=== PATIENT | female | born 1990 | race Caucasian/White ===

== ENCOUNTER 2017-05-22 12:28 | Outpatient (CLI) | payer MEDICAID ==
[~2017-05-22] VITALS: Ht 147.3 cm; Wt 69.0 kg
[2017-05-22] MEDS ORDERED: LACTATED RINGER'S 1,000 ML IV SCH (13:28)
[2017-05-22] MEDS ORDERED: PNV91TAB6 PO (14:07)
[2017-05-22 14:08] VITALS: Ht 147.3 cm; Wt 69.0 kg
--- NOTE | 2017-05-22 14:12 | RADRPT ---
PROCEDURE: US biophysical profile. Cervical length ultrasound. CLINICAL INDICATION: Decreased motion. TECHNIQUE: Multiple sonographic images of the uterus were obtained. Transvaginal sonogra phy of the cervix was also performed. The images were reviewed on a PACS workstation. COMPARISON: No prior studies are available for comparison. FINDINGS: There is a single live intrauterine gestation. heart rate is 134 beats per minute. The position is cephalic. The placenta is anterior grade II with no abruption or previa. The RACHEL is 12.4 cm. (Normal = 5-20 cm.) Cervical length is 3.1 cm. Breathing Movement: 2 Gross Body Movement: 2 Tone: 2 Qualitative Amniotic Fluid Volume: 2 TOTAL: 8 IMPRESSION: 1. The biophysical score is 8/8. 2. Cervical length is 3.1 cm. RPTAT: QQ .Himansuh Pandya MD, Date Time Electronically viewed and signed by .Himanshu Pandya MD, MD on 05/22/2017 14:12 .R/
--- NOTE | 2017-05-22 14:18 | TRIAGE ---
OB Triage Datetime Report Generated by CPN: 05/22/2017 14:18 Datetime: 05/22/2017 14:17 Assessment Type: Triage Maternal Assessment Level of Consciousness: Fully Conscious DTR's/Clonus: DTRs 2+; No Clonus Headache: Denies Blurred Vision: No Respiratory Effort: Unlabored; Regular Rhythm; Equal Expansion Breath Sounds, Left: Clear and Equal Breath Sounds, Right: Clear and Equal Nausea/Vomiting: Denies RUQ Epigastric Pain: Denies Lower Extremities Edema: None Degree: None Upper Extremities Edema: None Degree: None Facial Edema: None Fall Risk Assessment History of Falling: (0) No Secondary Diagnosis: (0) No Ambulatory Aid: (0) Bedrest/Nurse Assist IV Therapy: (0) No Gait: (0) Normal/Bedrest/Immobile Mental Status: (0) Oriented to Own Ability Fall Score: 0 Fall Risk Score Definition: No Risk: No action required Datetime: 05/22/2017 13:24 Vaginal Exam Dilatation (cms): 0.0 Exam By: Dr Bishop Vaginal Bleeding: None Cervix, Consistency: Moderate Cervix, Position: Anterior Presentation 'A': Cephalic Datetime: 05/22/2017 13:02 Time of Arrival: 05/22/2017 12:22 EGA: 34.6 Arrived By: Ambulatory Arrived From: Office Chief Complaint: PT HERE C/O DIZZINESS AND WEAKNESS AFTER BEING TOLD THAT HER DAD THIS AM. Movement: Present Contractions: Denies/Absent Rupture of Membranes: Denies Vaginal Bleeding: None Vaginal Discharge: Denies Recent Sexual Intercouse: Denies Abdominal Trauma: Not Applicable Patient Complaints: Dizziness Time Provider Notified: 05/22/2017 13:00 Provider Notified: ИРИНА Initial Plan: EFM/SVE/CVL/BPP/IV HYDRATION
[2017-05-22 14:22] VITALS: BP 118/64; PULSE 78; RESP 18
--- NOTE | 2017-06-05 12:34 | QN ---
Documentation Comment 34 weeks 6 days, had episodes of lightheadedness and mild dizziness after she heard the bad news regarding her father , vital sign, biophysical profile. All within normal patient discharged home with reassurance recommended follow-up at the clinic BLAINE LACKEY MD Jun 05, 2017 12:34
== END 2017-05-22 15:17 | disposition left against medical advice (07) ==
LOC: OBT 12:28 → L-D 12:30 → OBG 14:30 → UNDOADMIN 14:30 → OBT 14:59
PROVIDERS: ATTEND Obstetrics & Gynecology
DX: O26.893 Other specified pregnancy related conditions, third trimester (principal); R51 Headache; R42 Dizziness and giddiness; Z3A.34 34 weeks gestation of pregnancy
CPT/HCPCS: 36415; 76817; 76818; J7120; Z7500; G0463

== ENCOUNTER 2017-06-05 11:12 | Outpatient (CLI) | payer MEDICAID ==
[~2017-06-05] VITALS: Ht 152.4 cm; Wt 70.4 kg
[~2017-06-05 11:12] MED LIST: PNV91TAB6 PO
[2017-06-05 11:45] VITALS: Ht 152.4 cm; Wt 70.4 kg
--- NOTE | 2017-06-05 13:12 | RADRPT ---
PROCEDURE: US OB biophysical profile. Ultrasound cervix CLINICAL INDICATION: decreased movements, status post fall TECHNIQUE: Multiple sonographic images of the pelvis were obtained. In addition, transvaginal julieta ges of the cervix were obtained. The images were reviewed on a PACS workstation. COMPARISON: US PELVIS 05/22/2017 FINDINGS: The cervix measures 2.4 cm in length. There is a single viable intrauterine gestation. Cardiac activity is present with 125 beats per min sheldon. There is a vertex presentation. The placenta is anterior. There is no evidence of placental abruption. There is a normal amount of amniotic fluid with an RACHEL = 8.5 cm. Biophysical profile: movement 2/2 tone 2/2. breathing 2/2 RACHEL 2/2 Total 03/04 RPTAT: AA . IMPRESSION: Normal biophysical profile. Cervix measures 2.4 cm in length. .Christian Bacon MD, MD Date Time Electronically viewed and signed by .Christian Bacon MD, on 06/05/2017 13:12 .S/
--- NOTE | 2017-06-05 14:34 | TRIAGE ---
OB Triage Datetime Report Generated by CPN: 06/05/2017 14:34 Datetime: 06/05/2017 13:53 Monitor Mode: External Resting Tone [place]: Relaxed Heart Rate FHR Baseline Rate: 130 Monitor Mode: External US FHR Baseline Changes: No Baseline Change Variability: Moderate 6-25 bpm Accelerations: 15X15 Decelerations: None Category: Category I Datetime: 06/05/2017 12:45 Labor Evaluation Frequency: 10 Monitor Mode: External Duration (sec)2399: 50 Quality: Mild Pattern: Normal: <= 5 Contractions in 10 Minutes Resting Tone [place]: Relaxed Heart Rate FHR Baseline Rate: 135 Monitor Mode: External US FHR Baseline Changes: No Baseline Change Variability: Moderate 6-25 bpm Accelerations: 15X15 Decelerations: None Category: Category I Pain Assessment Pain Scale: 5 Pain Presence: Intermittent Pain Type: Ache Pain Location: Perineum Pain Goal: 0 Pain Relief Measures: Comfort Measures Datetime: 06/05/2017 11:58 Vaginal Exam Dilatation (cms): 0.5 Effacement (%): 50 Station: -2 Exam By: MD Foroohar Membrane Status: Intact Datetime: 06/05/2017 11:53 Labor Evaluation Frequency: 10 Monitor Mode: External Duration (sec)2399: 60 Quality: Mild Pattern: Normal: <= 5 Contractions in 10 Minutes Resting Tone [place]: Relaxed Heart Rate FHR Baseline Rate: 125 Monitor Mode: External US FHR Baseline Changes: No Baseline Change Variability: Moderate 6-25 bpm Accelerations: 15X15 Decelerations: None Category: Category I Pain Assessment Pain Scale: 6 Pain Presence: Intermittent Pain Type: Ache Pain Location: Abdomen; Perineum Pain Goal: 0 Pain Relief Measures: Comfort Measures Datetime: 06/05/2017 11:43 Time of Arrival: 06/05/2017 11:07 EGA: 36.5 Arrived By: Wheelchair Arrived From: Other Unit in Hospital Chief Complaint: Fall Movement: Present Contractions: Denies/Absent Rupture of Membranes: Denies Vaginal Discharge: Denies Recent Sexual Intercouse: Denies Abdominal Trauma: Fall Patient Complaints: Other Time Provider Notified: 06/05/2017 11:50 Provider Notified: Foroohar Initial Plan: NST, BPP/RACHEL, Cervical Length, KB Datetime: 06/05/2017 11:30 Assessment Type: Triage Maternal Assessment Level of Consciousness: Fully Conscious DTR's/Clonus: DTRs 2+; No Clonus Headache: Denies Blurred Vision: No Respiratory Effort: Unlabored; Regular Rhythm; Equal Expansion Breath Sounds, Left: Clear and Equal Breath Sounds, Right: Clear and Equal Nausea/Vomiting: Denies RUQ Epigastric Pain: Denies Lower Extremities Edema: Bilateral Lower Extremities Degree: Trace Upper Extremities Edema: None Degree: None Facial Edema: None Fall Risk Assessment History of Falling: (0) No Secondary Diagnosis: (0) No Ambulatory Aid: (0) Bedrest/Nurse Assist IV Therapy: (0) No Gait: (0) Normal/Bedrest/Immobile Mental Status: (0) Oriented to Own Ability Fall Score: 0 Fall Risk Score Definition: No Risk: No action required Datetime: 06/05/2017 11:20 Stage of : OB Triage Datetime: 05/22/2017 14:49 EGA: 34.6 Datetime: 05/22/2017 14:30 Stage of : OB Triage Maternal Assessment Level of Consciousness: Fully Conscious Labor Evaluation Frequency: 1UC/HR Monitor Mode: External Duration (sec)2399: 100 Quality: Moderate Resting Tone [place]: Relaxed Heart Rate FHR Baseline Rate: 135 Monitor Mode: External US Variability: Moderate 6-25 bpm Accelerations: 15X15 Decelerations: None Pain Assessment Pain Scale: 0 Pain Goal: 3 Membrane Status: Intact Vaginal Bleeding: None Datetime: 05/22/2017 14:17 Fall Score: 0 Fall Risk Score Definition: No Risk: No action required Datetime: 05/22/2017 13:30 Stage of : OB Triage Maternal Assessment Level of Consciousness: Fully Conscious Labor Evaluation Frequency: 1UC/HR Monitor Mode: External Duration (sec)2399: 100 Quality: Moderate Resting Tone [place]: Relaxed Heart Rate FHR Baseline Rate: 135 Monitor Mode: External US Variability: Moderate 6-25 bpm Accelerations: 15X15 Decelerations: None Category: Category I Pain Assessment Pain Scale: 0 Pain Goal: 3 Membrane Status: Intact Vaginal Bleeding: None Datetime: 05/22/2017 13:02 EGA: 34.6 Datetime: 05/22/2017 12:33 Monitor Mode: External Monitor Mode: External US
--- NOTE | 2017-06-05 15:51 | CONS ---
Date/Time of Note Date/Time of Note DATE: 06/05/17 TIME: 15:48 Consultation Date/Type/Reason Admit Date/Time June 05, 2017 OB triage consult This patient is a 27 years old 1 with estimated date of confinement of June 28, 2017 which makes her 36 weeks and 5 days. . She came to triage area due to fall when she was at home. On reviewing her record her blood type is O+ hepatitis B surface antigen and HIV RPR GBS chlamydia and gonorrhea were all negative. She is immune to rubella currently she is taking her vitamins as well as folic acid. Her general vital signs appear to be within normal limit ;with blood pressure 119/73 pulse rate 81,, respiration 18, and temperature 98.. On examination of abdomen contraction were very infrequent. heart tone was normal, with good variability occasional acceleration no decelerations. On pelvic examination the cervix was less than 1 fingertip about 50% effaced -2 station with intact membranes. Reason for Consultation Laboratory Tests Test 06/05/17 12:10 Kleihauer-Betke Stain 0.0000F/ARatio Constitutional: diaphoresis, other (No bruising or any other evidence of trauma found in any of wearing her body.), No chills, No disoriented, No febrile, No improved, No no complaints, No poor po, No requiring IVF, No requiring O2 Eyes: No discharge, No no complaints, No other, No pain, No redness, No visual change ENT: No bleeding, No congestion, No discharge, No dysphagia, No no complaints, No other, No pain, No sore throat Respiratory: sputum, No cough, No no complaints, No other, No pain, No pleuritic pain, No shortness of breath, No wheezing Cardiovascular: No chest pain, No edema, No lightheadedness, No no complaints, No orthopenea, No other, No palpitations, No paroxysmal nocturnal dyspnea Gastrointestinal: No blood, No constipation, No decreased appetite, No diarrhea , No flatus, No nausea, No no complaints, No other, No pain, No passing stool, No vomiting Genitourinary: other (As I mentioned on pelvic examination her cervix was a 1 fingertip 50% and -2), No bleeding, No discharge, No dysuria, No flank pain, No hematuria, No no complaints Musculoskeletal: No back pain, No bone/joint pain, No neck pain, No no complaints, No other, No restricted range of motion, No swelling Skin: No bruising, No erythema, No laceration, No no complaints, No other, No pruritis, No rash, No skin lesions Neurologic: No confusion, No dizziness, No focal-weakness, No headache, No no complaints, No other, No seizure, No syncope Endocrine: No dry skin, No no complaints, No other, No polydypsia, No polyuria , No temp intolerance Additional Comments Kleihauer-Betke test was performed which was negative on ultrasound study report was a single viable intrauterine gestation with cardiac activity of 125 bpm in vertex presentation the cervix measured 2.4 cm in length placenta was anterior, no evidence of abruption, her amniotic fluid index was 8.5 cm and the biophysical profile was reported 03/04. Disposition: With these normal finding with no evidence of any trauma patient was reassured and was discharged home to be followed in her clinic also advised to drink plenty of fluid and she will have another ultrasound study soon to check her amniotic fluid level. I should mention that this patient is already on a scheduled for section due to apparently past ruptured appendix. Social History Smoking Status: Never smoker Exam/Review of Systems Results Results 24 hrs Laboratory Tests Test 06/05/17 12:10 Kleihauer-Betke Stain 0.0000 SUSAN GIFFORD MD Jun 05, 2017 15:51
== END 2017-06-05 14:30 | disposition home or self-care (01) ==
LOC: OBT 11:12 → L-D 11:12 → OBT 14:30
PROVIDERS: ATTEND Obstetrics & Gynecology
DX: O9A.213 Injury, poisoning and certain other consequences of external causes complicating pregnancy, third trimester (principal); O36.8130 Decreased fetal movements, third trimester, not applicable or unspecified; Z3A.36 36 weeks gestation of pregnancy; W19.XXXA Unspecified fall, initial encounter; Y92.009 Unspecified place in unspecified non-institutional (private) residence as the place of occurrence of the external cause
CPT/HCPCS: 36415; 76817; 76818; 85460; Z7500; G0463

== ENCOUNTER 2017-06-13 19:49 | Outpatient (CLI) | payer MEDICAID ==
[~2017-06-13] VITALS: Ht 153.7 cm; Wt 70.9 kg
[2017-06-13 20:12] VITALS: BP 117/77; PULSE 83; RESP 18
--- NOTE | 2017-06-13 20:24 | PN ---
Triage Information Date/Time Reason for visit: DFM Weeks of Gestation 37w 6d /Para Objective Vital Signs Date Time Temp Pulse Resp B/P Pulse Ox O2 Delivery O2 Flow Rate FiO2 06/13/17 20:12 98.5 83 18 117/77 Room Air Heart Rate Comments reactive Contractions: None Results/Medications Imaging Results BPP ordered Assessment/Plan 27 y/o at 37w 6d with janice GUO -f/u BPP results -tylenol, po hydration JANA ANNA Jun 13, 2017 20:24
[2017-06-13] MEDS ORDERED: ACETAMINOPHEN 500 MG TAB PO STA (20:25)
[2017-06-13 20:39] LABS: ADD UMIC YES; UR ASCORBIC ACID NEGATIVE (NEGATIVE); UR BACTERIA FEW /HPF (NONE SEEN); UR BILIRUBIN (Dip) NEGATIVE (NEGATIVE); UR BLOOD (Dip) NEGATIVE (NEGATIVE); UR CLARITY CLEAR (CLEAR); UR COLOR YELLOW (YELLOW); UR GLUCOSE (Dip) NEGATIVE (NEGATIVE); UR KETONES (Dip) NEGATIVE (NEGATIVE); UR LEUKOCYTE ESTERASE (Dip) TRACE Leu/ul (NEGATIVE); UR NITRITE (Dip) NEGATIVE (NEGATIVE); UR RBC 1 /HPF (0-5); UR SPECIFIC GRAVITY (Dip) 1.005 (1.003-1.030); UR SQUAMOUS EPITHELIAL CELL FEW /HPF (FEW); UR TOTAL PROTEIN (Dip) NEGATIVE (NEGATIVE); UR UROBILINOGEN (Dip) NEGATIVE (NEGATIVE)
--- NOTE | 2017-06-13 21:04 | RADRPT ---
PROCEDURE: US biophysical profile. CLINICAL INDICATION: Contractions. TECHNIQUE: Multiple sonographic images of the uterus were obtained. The images were revi ewed on a PACS workstation. COMPARISON: No prior studies are available for comparison. FINDINGS: There is a single live intrauterine gestation. heart rate is 150 beats per minute. The position is cephalic. The placenta is anterior grade II with no abruption or previa. The RACHEL is 10.6 cm. (Normal = 5-20 cm.) Breathing Movement: 2 Gross Body Movement: 2 Tone: 2 Qualitative Amniotic Fluid Volume: 2 TOTAL: 8 IMPRESSION: 1. The biophysical score is 8/8. RPTAT: QQ .Himanshu Pandya MD, MD Date Time Electronically viewed and signed by .Himanshu Pandya MD, on 06/13/2017 21:04 .R/
--- NOTE | 2017-06-13 22:25 | TRIAGE ---
OB Triage Datetime Report Generated by CPN: 06/13/2017 22:25 Datetime: 06/13/2017 20:55 Stage of : OB Triage Monitor Mode: External Quality: Mild Pattern: Normal: <= 5 Contractions in 10 Minutes Resting Tone [place]: Relaxed Monitor Mode: External US Datetime: 06/13/2017 20:15 Stage of : OB Triage Monitor Mode: External Quality: Mild Pattern: Normal: <= 5 Contractions in 10 Minutes Resting Tone [place]: Relaxed Heart Rate FHR Baseline Rate: 140 Monitor Mode: External US FHR Baseline Changes: No Baseline Change Variability: Moderate 6-25 bpm Accelerations: 15X15 Decelerations: None Category: Category I Datetime: 06/13/2017 19:58 Stage of : OB Triage Maternal Assessment Level of Consciousness: Fully Conscious Headache: Generalized Blurred Vision: No Respiratory Effort: Unlabored Nausea/Vomiting: Present RUQ Epigastric Pain: Denies Facial Edema: None Labor Evaluation Frequency: placed Monitor Mode: External Resting Tone [place]: Relaxed Monitor Mode: External US Comments: FHT 140 Pain Assessment Pain Scale: 8 Pain Presence: Constant Pain Type: Stabbing; Pressure; Ache Pain Location: Head Datetime: 06/13/2017 19:54 Time of Arrival: 06/13/2017 19:44 EGA: 37.6 Arrived By: Wheelchair Arrived From: Home Chief Complaint: c/o severe GUO since last night and DFM Movement: Decreased Contractions: Denies/Absent Rupture of Membranes: Denies Vaginal Bleeding: None Vaginal Discharge: Denies Recent Sexual Intercouse: Denies Abdominal Trauma: Not Applicable Patient Complaints: Headache Time Provider Notified: 06/13/2017 20:15 Provider Notified: Dr Arceo Initial Plan: EFM, PO hydration, BPP, Tylenol 1000mg po Datetime: 06/05/2017 11:43 EGA: 36.5 Datetime: 06/05/2017 11:30 Fall Risk Assessment Fall Score: 0 Fall Risk Score Definition: No Risk: No action required Datetime: 05/22/2017 14:49 EGA: 34.6 Datetime: 05/22/2017 14:17 Fall Risk Assessment Fall Score: 0 Fall Risk Score Definition: No Risk: No action required Datetime: 05/22/2017 13:02 EGA: 34.6
== END 2017-06-13 22:12 | disposition home or self-care (01) ==
LOC: OBT 19:49 → L-D 19:50 → OBT 22:12
PROVIDERS: ATTEND Obstetrics & Gynecology
DX: O36.8130 Decreased fetal movements, third trimester, not applicable or unspecified (principal); Z3A.37 37 weeks gestation of pregnancy
CPT/HCPCS: 76818; 81001; Z7610

== ENCOUNTER 2017-06-20 13:51 | Inpatient (IN) | payer MEDICAID ==
[~2017-06-20] VITALS: Ht 154.9 cm; Wt 71.0 kg
[~2017-06-20 13:51] MED LIST changes: +EPHEDrine SULFATE 50 MG/5 ML SYG ONE
[2017-06-20] MEDS ORDERED: CARBOPROST 250 MCG INJ IM PRN ×2 (14:30→21:30)
[2017-06-20] MEDS ORDERED: MISOPROSTOL 200 MCG TAB PR PRN ×2 (14:30→21:30)
[2017-06-20] MEDS ORDERED: METHYLERGONOVINE 0.2 MG INJ IM PRN ×2 (14:30→21:30)
[2017-06-20] MEDS ORDERED: OXYTOCIN 30 UNITS/LR 500 ML IV PRN ×2 (14:30→21:30)
[2017-06-20] MEDS: LACTATED RINGER'S 1,000 ML IV SCH ×3 (14:40→21:15)
[2017-06-20 14:41] VITALS: Ht 154.9 cm; Wt 71.0 kg
[2017-06-20 14:43] VITALS: BP 117/71; PULSE 83; RESP 16
[2017-06-20 14:51] LABS: BASOPHILS % 0.1 % (0.0-2.0); EOSINOPHILS % 0.3 % (0.0-7.0); HEMATOCRIT 41.6 % (37.0-47.0); HEMOGLOBIN 13.8 g/dl (12.0-16.0); LYMPHOCYTES # 1.4 10^3/ul (0.8-2.9); LYMPHOCYTES % 13.8 % (15.0-51.0); MEAN CORPUSCULAR HEMOGLOBIN 28.6 pg (29.0-33.0); MEAN CORPUSCULAR HGB CONC 33.2 g/dl (32.0-37.0); MEAN CORPUSCULAR VOLUME 86.3 fl (82.0-101.0); MEAN PLATELET VOLUME 10.2 fl (7.4-10.4); MONOCYTE # 0.6 10^3/ul (0.3-0.9); NEUTROPHIL # 7.8 10^3/ul (1.6-7.5); NEUTROPHILS % 78.9 % (39.0-77.0); PLATELET COUNT 201 10^3/UL (140-415); RED BLOOD COUNT 4.82 10^6/ul (4.20-5.40); RED CELL DISTRIBUTION WIDTH 14.1 % (11.5-14.5); WHITE BLOOD COUNT 9.8 10^3/ul (4.8-10.8)
[2017-06-20 15:10] LABS: INR 0.9; PROTIME 12.1 Sec (12.2-14.2); PT RATIO 0.9
[2017-06-20 15:11] LABS: PARTIAL THROMBOPLASTIN TIME 27.1 Sec (25.0-35.0)
[2017-06-20] MEDS ORDERED: GENTAMICIN 80 MG/NS (PMX) 50 ML IVPB SCH (15:30)
[2017-06-20] MEDS ORDERED: CLINDAMYCIN 900 MG/D5W (PMX) 50 ML IVPB SCH (15:30)
[2017-06-20] MEDS ORDERED: METOCLOPRAMIDE 10 MG INJ ONE (16:52)
[2017-06-20] MEDS ORDERED: morphine SULFATE/PF (10 MG/10 ML) INJ ONE (16:52)
[2017-06-20] MEDS ORDERED: ONDANSETRON 4 MG INJ ONE (16:52)
[2017-06-20] MEDS ORDERED: KETOROLAC 30 MG INJ ONE (16:52)
--- NOTE | 2017-06-20 18:18 | HP ---
Date/Time of Note Date/Time of Note DATE: 06/20/17 TIME: 18:15 OB - History Hx of Present Free Text/Dictation 27-year-old female admitted for elective primary section per request Last Menstrual Period: Sep 01, 2016 Estimated Due Date: Jun 27, 2017 : 1 Para: 0 Care: Good Care Ultrasounds: Normal mid trimester US Obstetrical Complications: None Medical Complications: None, Other (Previous appendectomy) Past Family/Social History * Past Medical, Surgical, Family and Obstetric Histories reviewed from chart. Blood Type: O+ Rubella: immune RPR/VDRL: Negative GBS Status: Negative HBsAG: Negative OB Admission Exam Vital Signs Vital Signs Vital Signs Date Time Temp Pulse Resp B/P Pulse Ox O2 Delivery O2 Flow Rate FiO2 06/20/17 14:43 98.1 83 16 117/71 Physical Exam HEENT: WNL Heart: Rhythm Normal Lungs: Clear, Equal Abdomen: WNL Extremities: Normal Reflexes: Normal Cervical Dilatation: None Station: -3 Membranes: Intact Heart Rate: 140's Accelerations: Accelerations Present Decelerations: No Decelerations Varibility: Marked Last 72 hours Lab Results CBC & BMP 06/20/17 14:30 OB Assessment/Plan Reason for admission: section Other Assessment: Term gestation Request delivery Other plan: Proceed with primary resection ROSEMARY PEDRAZA MD Jun 20, 2017 18:18
--- NOTE | 2017-06-20 18:21 | OPR ---
Operative Report Planned Procedure Procedure date Jun 20, 2017 Procedure(s) Primary section Performed by see signature line Ditch Worker Dr. Marie Anesthesiologist: GLADYS POSADAS MD Pre-procedure diagnosis Term gestation Desires delivery Anesthesia Type: spinal Post-Procedure Post-procedure diagnosis Status post Status post lysis of adhesions Findings Live Baby in OT position Clear amniotic fluid Estimated Blood Loss: 500 - 600 mls Specimen(s) none Grafts/Implant(s) none Complication(s) none Pt Condition post procedure: stable Disposition: PACU Procedure Description Under satisfactory anaesthesia a Pfannenstiel incision was made two fingerbreadth above and parallel to the symphysis of pubis. Incision was extended laterally to the border of the Recti muscles on either sides. Incision was carried down with sharp and blunt dissection until fascia was reached. Anterior Recti muscle fascia was incised in mid portion and incision extended laterally to the border of skin incision. Fascia was mobilized from muscle superiorly and Recti muscles were from midline using sharp and blunt dissection. Peritoneum was visualized; Avoiding bowel and bladder it was incised . Incision was extended superiorly and inferiorly. Bladder blade was placed. Posterior peritoneum covering the lower segment of the uterus and lower segment of the uterus were incised. Incision was extended laterally to the border of Round Lig. on either sides and baby was delivered from OP. position . Amniotic fluid appeared clear. Cord blood was obtained and cord had 3 vessels . Placenta was delivered spontaneously and appeared intact and complete. Intrauterine cavity was rubbed with a laparotomy sponge. Uterine incision was closed in 2 layers using running stitches of No1 Monocryl. Hemostasis appeared secure. Ovaries and Fallopian tubes were within normal limits. Omental adhesions to anterior abdominal wall were lysed and ligated using 0 Vicryl stitch, all omental adhesions at the surgical sites were removed and ligated. Announcing needle, lap sponge and instrument count to be correct abdomen was closed in layers as follows: Peritoneum and Recti muscles with running stitches of 20 Vicryl. Fascia with running stitch of No 1 PDS. Subcutaneous tissue with running stitches of 20 Chromic and skin was closed using álvaro. Patient tolerated the procedure well and was transferred to [facility] in good condition. ROSEMARY PEDRAZA MD Jun 20, 2017 18:21
[2017-06-20] MEDS ORDERED: morphine 4 MG/ML VIAL IV PRN (18:30)
[2017-06-20] MEDS ORDERED: NALOXONE (0.4 MG/ML) INJ IV PRN (18:30)
[2017-06-20] MEDS ORDERED: ONDANSETRON 4 MG INJ IV PRN ×2 (18:30)
[2017-06-20] MEDS ORDERED: morphine 2 MG INJ IV PRN ×2 (18:30)
[2017-06-20] MEDS ORDERED: morphine (1 MG/ML) 10ML SYRINGE IV PRN ×3 (18:30)
[2017-06-20] MEDS ORDERED: DIPHENHYDRAMINE 50 MG INJ IV PRN ×2 (18:30)
[2017-06-20] MEDS: OXYTOCIN 30 UNITS/LR 500 ML IV SCH ×2 (18:46→20:23)
[2017-06-20] MEDS: KETOROLAC 30 MG INJ IV PRN (20:42)
[2017-06-20] MEDS ORDERED: NA PHOSPHATE/BIPHOS 133 ML ENEMA PR PRN (21:30)
[2017-06-20] MEDS ORDERED: LANOLIN 7 GM TUBE TOP PRN (21:30)
[2017-06-20] MEDS: CLINDAMYCIN 900 MG/D5W (PMX) 50 ML IVPB SCH (21:42)
[2017-06-20 22:17] VITALS: BP 105/59; PULSE 74; RESP 18
[2017-06-20 23:00] VITALS: BP 112/66; PULSE 76; RESP 20
[2017-06-20 23:45] VITALS: BP 100/70; PULSE 70; RESP 20
[2017-06-21] VITALS (7 sets, daily range): BP systolic 100–110; BP diastolic 49–68; PULSE 72–94; RESP 16–20
[2017-06-21] MEDS: GENTAMICIN 80 MG/NS (PMX) 50 ML IVPB SCH ×3 (00:21→16:59)
[2017-06-21] MEDS: LACTATED RINGER'S 1,000 ML IV SCH ×3 (01:37→21:15)
[2017-06-21] MEDS: CLINDAMYCIN 900 MG/D5W (PMX) 50 ML IVPB SCH ×3 (05:59→21:28)
[2017-06-21] MEDS: KETOROLAC 30 MG INJ IV PRN ×2 (07:47→14:30)
[2017-06-21] MEDS: SENNA/DOCUSATE NA (8.6MG/50MG) TAB PO SCH ×3 (09:00→21:00)
[2017-06-21 10:02] LABS: BASOPHILS % 0.2 % (0.0-2.0); EOSINOPHILS % 0.2 % (0.0-7.0); HEMATOCRIT 35.1 % (37.0-47.0); HEMOGLOBIN 11.7 g/dl (12.0-16.0); LYMPHOCYTES # 1.4 10^3/ul (0.8-2.9); LYMPHOCYTES % 11.3 % (15.0-51.0); MEAN CORPUSCULAR HEMOGLOBIN 29.1 pg (29.0-33.0); MEAN CORPUSCULAR HGB CONC 33.3 g/dl (32.0-37.0); MEAN CORPUSCULAR VOLUME 87.3 fl (82.0-101.0); MONOCYTE # 0.8 10^3/ul (0.3-0.9); MONOCYTES % 6.2 % (0.0-11.0); NEUTROPHIL # 10.2 10^3/ul (1.6-7.5); NEUTROPHILS % 81.3 % (39.0-77.0); PLATELET COUNT 181 10^3/UL (140-415); RED BLOOD COUNT 4.02 10^6/ul (4.20-5.40); RED CELL DISTRIBUTION WIDTH 13.7 % (11.5-14.5); WHITE BLOOD COUNT 12.5 10^3/ul (4.8-10.8)
[2017-06-21] MEDS ORDERED: BISACODYL 10 MG SUPP PR ONE (10:30)
--- NOTE | 2017-06-21 16:36 | PN ---
Date/Time of Note Date/Time of Note DATE: 06/21/17 TIME: 16:32 Assessment/Plan VTE Prophylaxis VTE Prophylaxis Intervention: ambulation Lines/Catheters IV Catheter Type (from Nrsg): Peripheral IV Assessment/Plan Assessment/Plan Status post delivery postop day 1 Advance diet and ambulate Repeat CBC next day Continue to monitor vital signs Subjective 24 Hr Interval Summary No bowel movement Passing flatus Constitutional: BM, ambulates, flatus, improved, no complaints, urine output Pain Control: well controlled Exam/Review of Systems Vital Signs Vitals Vital Signs Date Time Temp Pulse Resp B/P Pulse Ox O2 Delivery O2 Flow Rate FiO2 06/21/17 15:45 98.3 79 20 109/55 98 Room Air 06/21/17 05:26 21 Intake and Output 06/20/17 06/20/17 06/21/17 15:00 23:00 07:00 Intake Total 1300 ml 1050 ml Output Total 1300 ml 800 ml Balance 0 ml 250 ml Exam Free Text/Dictation Abdomen is soft and not distended and bowel sounds present incision is covered Abdomen is tender around the incision area Incision is covered Constitutional: alert, oriented, well developed Psych: nl mood/affect, no complaints Head: atraumatic, normocephalic Eyes: EOMI, nl conjunctiva, nl lids, nl sclera ENMT: mucosa pink and moist, nl external ears & nose, nl lips & teeth, nl nasal mucosa & septum Neck: non-tender, supple Respiratory: clear to auscultation, normal air movement Cardiovascular: nl pulses, regular rate and rhythm Gastrointestinal: nl liver, spleen, non-tender, soft Drains None Musculoskeletal: nl extremities to inspection, nl gait and stance Extremities: normal pulses Neurological: [employer] II-XII intact, nl mental status, nl speech, nl strength Skin: nl turgor, rash or lesions Lymph: nl lymph nodes Results Result Diagram: 06/21/17 0734 ROSEMARY PEDRAZA MD Jun 21, 2017 16:36
[2017-06-21] MEDS: OXYCODONE/ACETAMINOPHEN (5/325) TAB PO PRN (18:01)
[2017-06-21] MEDS ORDERED: HYDROCODONE/APAP (5/325) TAB PO PRN (18:30)
--- NOTE | 2017-06-21 21:15 | PN ---
Date/Time of Note Date/Time of Note DATE: 06/21/17 TIME: 21:13 Assessment/Plan VTE Prophylaxis VTE Prophylaxis Intervention: ambulation Lines/Catheters IV Catheter Type (from Nrsg): Peripheral IV Subjective 24 Hr Interval Summary Free Text/Dictation Anesthesia note A 27 year female after pod #1 after duramorph is doing fine. No pain, n/v, headache, back pain, or sensory deficit. back is clean. care per surgery Exam/Review of Systems Vital Signs Vitals Vital Signs Date Time Temp Pulse Resp B/P Pulse Ox O2 Delivery O2 Flow Rate FiO2 06/21/17 15:45 98.3 79 20 109/55 98 Room Air 06/21/17 05:26 21 Intake and Output 06/20/17 06/20/17 06/21/17 15:00 23:00 07:00 Intake Total 1300 ml 1050 ml Output Total 1300 ml 800 ml Balance 0 ml 250 ml Results Result Diagram: 06/21/17 0734 Results 24 hrs Laboratory Tests Test 06/21/17 07:34 White Blood Count 12.5 #H Red Blood Count 4.02 L Hemoglobin 11.7 L Hematocrit 35.1 L Mean Corpuscular Volume 87.3 Mean Corpuscular Hemoglobin 29.1 Mean Corpuscular Hemoglobin Concent 33.3 Red Cell Distribution Width 13.7 Platelet Count 181 Mean Platelet Volume 11.0 H Neutrophils % 81.3 H Lymphocytes % 11.3 L Monocytes % 6.2 Eosinophils % 0.2 Basophils % 0.2 Nucleated Red Blood Cells % 0.0 Neutrophils # 10.2 H Lymphocytes # 1.4 Monocytes # 0.8 Eosinophils # 0.0 Basophils # 0.0 Nucleated Red Blood Cells # 0.0 Medications Medications Current Medications Lactated Ringer's (Lr) 1,000 ml @ 125 mls/hr Q8H IV Last administered on 06/21 09:46; Admin Dose 125 MLS/HR; Start 06/20/17 at 21:15 Ibuprofen (Motrin) 800 mg Q8 PO ; Start 06/21/17 at 22:00 Simethicone (Mylicon) 160 mg Q8H PRN PO DISTENSION/GAS/BLOATING; Start at 21:30 Senna/Docusate Sodium (Senokot-S) 1 tab BID PO Last administered on 06/21/17 18:01; Admin Dose 1 TAB; Start 06/21/17 at 09:00 Sodium Biphosphate/ Sodium Phosphate (Fleet Enema) [address] CONSTIPATION; Start 06/20/17 at 21:30 Diphtheria/ Tetanus/Acell Pertussis (Adacel) 0.5 ml ONCE ONCE IM* ; Start 06/23 at 09:00; Stop 06/23/17 at 09:01 Measles/Mumps/ Rubella Vaccine Live 0.5 ml 0.5 ml ONCE ONCE SC* ; Start at 09:00; Stop 06/23/17 at 09:01 Oxytocin/Lactated Ringer's 500 ml @ 0 mls/hr ONCE PRN IV For Hemorrhage Management; Start 06/20/17 at 21:30 Methylergonovine Maleate (Methergine) 0.2 mg ONCE PRN IM VAGINAL BLEEDING; Start 06/20/17 at 21:30 Carboprost Tromethamine (Hemabate) 250 mcg ONCE PRN IM VAGINAL BLEEDING; Start 06/20/17 at 21:30 Misoprostol (Cytotec) 1,[address] VAGINAL BLEEDING; Start 06/20/17 at 21:30 Acetaminophen/ Hydrocodone Bitart ([place] (5/325)) 2 tab Q4H PRN PO PAIN LEVEL 1 -5; Start 06/21/17 at 18:30 Oxycodone/ Acetaminophen 2 tab 2 tab Q4H PRN PO PAIN LEVEL 6-10 Last administered on 06/21/17 18:01; Admin Dose 1 TAB; Start 06/21/17 at 18:30 Clindamycin HCl/ Dextrose 50 ml @ 50 mls/hr Q8 IVPB Last administered on 14:25; Admin Dose 50 MLS/HR; Start 06/20/17 at 22:00 Gentamicin Sulfate (Gentamicin) 50 ml @ 104 mls/hr Q8H IVPB Last administered on 06/21/17 16:59; Admin Dose 104 MLS/HR; Start 06/21/17 at 00:30 Influenza Virus Vaccine (Fluzone) 0.5 ml ONCE ONCE IM* ; Start 06/22/17 at 09: 00; Stop 06/22/17 at 09:01 GLADYS POSADAS MD Jun 21, 2017 21:15
[2017-06-21] MEDS: IBUPROFEN 800 MG TAB PO SCH (21:27)
[2017-06-22] MEDS: GENTAMICIN 80 MG/NS (PMX) 50 ML IVPB SCH ×3 (00:42→16:50)
[2017-06-22 04:30] VITALS: BP 120/72; PULSE 82
[2017-06-22] MEDS: LACTATED RINGER'S 1,000 ML IV SCH ×2 (05:15→16:50)
[2017-06-22] MEDS: CLINDAMYCIN 900 MG/D5W (PMX) 50 ML IVPB SCH ×3 (05:55→21:52)
[2017-06-22] MEDS: IBUPROFEN 800 MG TAB PO SCH ×3 (05:55→21:52)
[2017-06-22 08:00] VITALS: BP 99/57; PULSE 72; RESP 18
[2017-06-22] MEDS: SENNA/DOCUSATE NA (8.6MG/50MG) TAB PO SCH ×2 (08:45→21:52)
[2017-06-22 08:58] LABS: BASOPHILS % 0.3 % (0.0-2.0); EOSINOPHILS # 0.2 10^3/ul (0.0-0.5); EOSINOPHILS % 1.9 % (0.0-7.0); HEMATOCRIT 34.5 % (37.0-47.0); HEMOGLOBIN 11.7 g/dl (12.0-16.0); LYMPHOCYTES # 1.7 10^3/ul (0.8-2.9); LYMPHOCYTES % 14.2 % (15.0-51.0); MEAN CORPUSCULAR HEMOGLOBIN 29.5 pg (29.0-33.0); MEAN CORPUSCULAR HGB CONC 33.9 g/dl (32.0-37.0); MEAN CORPUSCULAR VOLUME 87.1 fl (82.0-101.0); MEAN PLATELET VOLUME 10.4 fl (7.4-10.4); MONOCYTE # 0.8 10^3/ul (0.3-0.9); MONOCYTES % 6.4 % (0.0-11.0); NEUTROPHIL # 9.1 10^3/ul (1.6-7.5); NEUTROPHILS % 76.5 % (39.0-77.0); PLATELET COUNT 185 10^3/UL (140-415); RED BLOOD COUNT 3.96 10^6/ul (4.20-5.40); RED CELL DISTRIBUTION WIDTH 14.2 % (11.5-14.5); WHITE BLOOD COUNT 11.9 10^3/ul (4.8-10.8)
[2017-06-22] MEDS ORDERED: INFLUENZA VIRUS VACCINE 0.5 ML (DISPENSING) IM* ONE (09:00)
[2017-06-22] MEDS: OXYCODONE/ACETAMINOPHEN (5/325) TAB PO PRN ×2 (11:40→19:30)
[2017-06-22 16:00] VITALS: BP 116/77; PULSE 78; RESP 18
[2017-06-22 20:11] VITALS: BP 124/72; PULSE 70; RESP 18
[2017-06-23] MEDS: OXYCODONE/ACETAMINOPHEN (5/325) TAB PO PRN (00:17)
[2017-06-23] MEDS: GENTAMICIN 80 MG/NS (PMX) 50 ML IVPB SCH ×2 (00:40→08:44)
[2017-06-23] MEDS: IBUPROFEN 800 MG TAB PO SCH ×2 (05:30→14:36)
[2017-06-23] MEDS: CLINDAMYCIN 900 MG/D5W (PMX) 50 ML IVPB SCH ×2 (05:30→14:00)
[2017-06-23 05:42] VITALS: BP 120/73; PULSE 62; RESP 18
[2017-06-23 08:00] VITALS: BP 117/62; PULSE 68; RESP 18
[2017-06-23] MEDS: SENNA/DOCUSATE NA (8.6MG/50MG) TAB PO SCH (08:44)
[2017-06-23] MEDS ORDERED: DIPHTH/TET/ACEL PERTUSS (ADULT) 0.5 ML VIAL IM* ONE (09:00)
[2017-06-23] MEDS ORDERED: MEASLES,MUMPS,RUBELLA VACCINE INJ SC* ONE (09:00)
--- NOTE | 2017-06-23 09:19 | QN ---
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
--- NOTE | 2017-06-23 09:23 | DS ---
Date/Time of Note Date/Time of Note DATE: 06/23/17 TIME: 09:22 Discharge Summary Admission/Discharge Info Admit Date/Time Jun 20, 2017 at 13:51 Discharge Date/Time 06/23/2017 Discharge Diagnosis Postop day #3 status post Patient Condition: Good Hospital Course Patient remained afebrile and stable with an uncomplicated course Home Meds Reported Medications Pnv95/Ferrous Fumarate/FA ( Vitamin Tablet) 1 Each Tablet, 1 EACH PO DAILY, TAB 05/22/17 Primary Care Provider Care Physician No Primary Copies To: CC: ROSEMARY PEDRAZA MD, BAHAREH MD Jun 23, 2017 09:23
[2017-06-23 11:16] LABS: BASOPHILS % 0.3 % (0.0-2.0); EOSINOPHILS # 0.3 10^3/ul (0.0-0.5); EOSINOPHILS % 2.6 % (0.0-7.0); HEMATOCRIT 35.7 % (37.0-47.0); HEMOGLOBIN 11.9 g/dl (12.0-16.0); LYMPHOCYTES % 9.4 % (15.0-51.0); MEAN CORPUSCULAR HEMOGLOBIN 29.2 pg (29.0-33.0); MEAN CORPUSCULAR HGB CONC 33.3 g/dl (32.0-37.0); MEAN CORPUSCULAR VOLUME 87.5 fl (82.0-101.0); MEAN PLATELET VOLUME 10.2 fl (7.4-10.4); MONOCYTE # 0.6 10^3/ul (0.3-0.9); MONOCYTES % 5.9 % (0.0-11.0); NEUTROPHIL # 8.5 10^3/ul (1.6-7.5); NEUTROPHILS % 80.7 % (39.0-77.0); PLATELET COUNT 204 10^3/UL (140-415); RED BLOOD COUNT 4.08 10^6/ul (4.20-5.40); RED CELL DISTRIBUTION WIDTH 14.2 % (11.5-14.5); WHITE BLOOD COUNT 10.5 10^3/ul (4.8-10.8)
--- NOTE | 2017-06-23 15:49 | DS ---
Date/Time of Note Date/Time of Note DATE: 06/23/17 TIME: 15:47 Obstetrical Discharge Record Final Diagnosis Final Diagnosis: Term delivered Other Final Diagnosis Status post Section Section: Primary Primary Indication Elective Condition on Discharge Physical Assessment Last Vitals: See nurse's notes Voiding: Yes Bowel Movement: Yes Breast: Soft, non-tender, Filling Fundus: Firm Abdomen and Incision: Abdomen is soft bowel sounds positive Episiotomy: Not applicable Calf Tenderness: No Patient Condition: Good ROSEMARY PEDRAZA MD Jun 23, 2017 15:49
--- NOTE | 2017-06-23 15:51 | PN ---
Date/Time of Note Date/Time of Note Late entry DATE: 06/22/17 Assessment/Plan VTE Prophylaxis VTE Prophylaxis Intervention: ambulation Lines/Catheters IV Catheter Type (from Nrsg): Saline Lock Assessment/Plan Assessment/Plan Status post postop day 2 We will continue to observe Subjective 24 Hr Interval Summary Had bowel movement Constitutional: BM, ambulates, flatus, improved, no complaints, urine output Pain Control: well controlled Exam/Review of Systems Vital Signs Vitals Vital Signs Date Time Temp Pulse Resp B/P Pulse Ox O2 Delivery O2 Flow Rate FiO2 06/23/17 08:00 97.9 68 18 117/62 Room Air 06/21/17 15:45 98 06/21/17 05:26 21 Intake and Output 06/22/17 06/22/17 06/23/17 14:59 22:59 06:59 Intake Total 50 ml 100 ml Balance 50 ml 100 ml Exam Free Text/Dictation Abdomen is soft bowel sounds positive Incision healing well Constitutional: alert, oriented, well developed Psych: nl mood/affect, no complaints Head: atraumatic, normocephalic Eyes: EOMI, nl conjunctiva, nl lids, nl sclera ENMT: mucosa pink and moist, nl external ears & nose, nl lips & teeth, nl nasal mucosa & septum Neck: non-tender, supple Respiratory: clear to auscultation, normal air movement Cardiovascular: nl pulses, regular rate and rhythm Gastrointestinal: nl liver, spleen, non-tender, soft Musculoskeletal: nl extremities to inspection, nl gait and stance Extremities: normal pulses Neurological: [employer] CONSULTANT II-XII intact, nl mental status, nl speech, nl strength Skin: nl turgor, rash or lesions Lymph: nl lymph nodes Results Result Diagram: 06/23/17 1057 ROSEMARY PEDRAZA MD Jun 23, 2017 15:51
--- NOTE | 2017-06-23 15:52 | PD.PPDC ---
PROJECT GEOLOGIST Discharge Instruction Provider Information Physician Information 27-year-old female had elective primary section Diagnosis Final Diagnosis: Let us post Condition Patient Condition: Good Diet Diet: Resume Regular Diet Activity/Restrictions Activity: November Shower Restrictions: No Exercising No Lifting Nothing in the Vagina Return to Work or School: Aug 25, 2017 Follow-up Follow-up with Physician: 2, 3, Day/Days (In clinic for staple removal) Return to clinic for OB Instructions: Breast Tenderness Depression Comment: Pelvic rest no heart activity for 2 months ROSEMARY PEDRAZA MD Jun 23, 2017 15:52
== END 2017-06-23 15:40 | disposition home or self-care (01) | DRG 766 ==
LOC: L-D 13:51 → UNDOADMIN 13:51 → L-D 17:02 → PP1 21:13
PROVIDERS: ADMIT Obstetrics & Gynecology; ATTEND Obstetrics & Gynecology
PROC: 10D00Z1 Extraction of Products of Conception, Low, Open Approach (ICD-10-PCS; principal; 2017-06-20)
DX: O75.82 Onset (spontaneous) of labor after 37 completed weeks of gestation but before 39 completed weeks gestation, with delivery by (planned) cesarean section (principal); Z37.0 Single live birth; Z3A.38 38 weeks gestation of pregnancy
CPT/HCPCS: 85025; 85610; 85730; 86592; 86850; 86900; 86901; 87340; 90686; 90715; 94760; 99464; J1200; J1580; J1885; J2270; J2274; J2405; J2590; J2765; J7120

== ENCOUNTER 2017-07-10 02:47 | Emergency (ER) | payer MEDICAID ==
[~2017-07-10] VITALS: Ht 157.5 cm; Wt 61.4 kg
[~2017-07-10 02:47] MED LIST changes: -EPHEDrine SULFATE 50 MG/5 ML SYG ONE
[2017-07-10 02:51] VITALS: Ht 157.5 cm; Wt 61.4 kg
--- NOTE | 2017-07-10 04:00 | ERD ---
ER Documentation Chief Complaint Chief Complaint abdominal pain HPI The patient is a 27-year-old female, presenting to the ER because of intermittent epigastric abdominal pain for the last 2 weeks, worse with eating, denies fever, chills, neck pain, chest pain, dysuria, diarrhea, constipation. She does not smoke nor drink Medical history: None Surgical history: on June 21, 2017, appendectomy ROS All systems reviewed and are negative except as per history of present illness. Medications Home Meds Active Scripts Ibuprofen* (Motrin*) 600 Mg Tab, 600 MG PO Q6H Y for PAIN, #20 TAB Prov:SHAN SOTO MD 07/10/17 Sulfamethoxazole/Trimethoprim* (Bactrim Ds* Tablet) 1 Each Tablet, 1 TAB PO BID for 10 Days, TAB Prov:SHAN SOTO MD 07/10/17 Reported Medications Pnv95/Ferrous Fumarate/FA ( Vitamin Tablet) 1 Each Tablet, 1 EACH PO DAILY, TAB 05/22/17 Allergies Allergies: Coded Allergies: Penicillins (Verified Allergy, Intermediate, RASH, 06/13/17) Physical Exam Vitals Vital Signs Date Time Temp Pulse Resp B/P Pulse Ox O2 Delivery O2 Flow Rate FiO2 07/10/17 05:13 98.6 77 14 103/73 99 Room Air 07/10/17 02:51 98.6 72 20 102/57 98 Physical Exam Const: No acute distress. Head: Atraumatic. Eyes: Normal Conjunctiva. ENT: Normal External Ears, Nose and Mouth. Neck: Full range of motion. No meningismus. Resp: Clear to auscultation bilaterally. Cardio: Regular rate and rhythm. Abd: Soft, non distended, normal bowel sounds, mild epigastric tenderness, no right lower quadrant, right upper quadrant, CVA tenderness Skin: No petechiae or rashes. Back: No midline or flank tenderness. Ext: No cyanosis, or edema. Neur: Awake and alert. No focal deficit Psych: Normal Mood and Affect. Result Diagram: 07/10/17 0500 07/10/17 0500 Results 24 hrs Laboratory Tests Test 07/10/17 05:00 07/10/17 05:02 White Blood Count 10.810^3/ul Red Blood Count 4.6710^6/ul Hemoglobin 13.4g/dl Hematocrit 40.1% Mean Corpuscular Volume 85.9fl Mean Corpuscular Hemoglobin 28.7pg Mean Corpuscular Hemoglobin Concent 33.4g/dl Red Cell Distribution Width 13.2% Platelet Count 33427^3/UL Mean Platelet Volume 10.6fl Neutrophils % 79.6% Lymphocytes % 12.2% Monocytes % 5.5% Eosinophils % 1.9% Basophils % 0.4% Nucleated Red Blood Cells % 0.0/100WBC Neutrophils # 8.610^3/ul Lymphocytes # 1.310^3/ul Monocytes # 0.610^3/ul Eosinophils # 0.210^3/ul Basophils # 0.010^3/ul Nucleated Red Blood Cells # 0.010^3/ul Sodium Level 141mmol/L Potassium Level 4.1mmol/L Chloride Level 105mmol/L Carbon Dioxide Level 25mmol/L Anion Gap 15 Blood Urea Nitrogen 24mg/dl Creatinine 0.76mg/dl Glucose Level 103mg/dl Calcium Level 9.8mg/dl Total Bilirubin 0.3mg/dl Direct Bilirubin 0.00mg/dl Indirect Bilirubin 0.3mg/dl Aspartate Amino Transf (AST/SGOT) 106IU/L Alanine Aminotransferase (ALT/SGPT) 171IU/L Alkaline Phosphatase 377IU/L Total Protein 7.7g/dl Albumin 4.0g/dl Globulin 3.70g/dl Albumin/Globulin Ratio 1.08 Lipase 85U/L Bedside Urine pH (LAB) 5.5 Bedside Urine Protein (LAB) Negative Bedside Urine Glucose (UA) Negative Bedside Urine Ketones (LAB) Negative Bedside Urine Blood 3+ Bedside Urine Nitrite (LAB) Negative Bedside Urine Leukocyte Esterase (L 1+ Current Medications Medications (Trade) Dose Ordered Sig/Amber Route PRN Reason Start Time Stop Time Status Last Admin Dose Admin Sodium Chloride (NS) 1,000 ml @ 1,000 mls/hr Q1H STAT IV 07/10/17 04:15 07/10/17 05:14 DC 07/10/17 05:06 Morphine Sulfate (morphine) 2 mg ONCE STAT IV 07/10/17 04:15 07/10/17 04:16 DC 07/10/17 05:07 Ondansetron HCl (Zofran Inj) 4 mg ONCE STAT IV 07/10/17 04:15 07/10/17 04:16 DC 07/10/17 05:06 Procedures/[facility] [address] [address] Radiology Main Line: [phone] DIAGNOSTIC IMAGING REPORT Patient: YESENIA SUN : 1990 Age: 27 Sex: F MR #: [id number] DOS: 07/10/17 0415 Ordering MD: SHAN SOTO MD Location: E/R Room/Bed: PROCEDURE: ULTRASOUND LIMITED ABDOMEN CLINICAL INDICATION: 27-year-old female with abdominal pain. TECHNIQUE: Multiple sonographic of the right upper quadrant of the abdomen were obtained. The images were reviewed on a PACS workstation. COMPARISON: None. FINDINGS: The pancreas is partially visualized and is otherwise without abnormal echogenicity. The liver displays normal echogenicity. The liver measures 17.9 cm in length. No evidence of intrahepatic biliary ductal dilatation is seen. The portal and hepatic veins are unremarkable. The gallbladder contains multiple shadowing stones. The gallbladder wall is mildly thickened measuring 3.8 mm. No pericholecystic fluid is seen. The common bile duct measures 3.6 mm and is not dilated. The right kidney displays normal echogenicity. The right kidney measures 10.8 cm in maximal length. No caliectasis or hydronephrosis is seen. No free fluid is seen. IMPRESSION: Cholelithiasis with mildly thickened gallbladder wall. .Chance Anderson MD, Date Time Electronically viewed and signed by .Chance Anderson MD, on 07/10/2017 04:52 .M/ CC: SHAN SOTO MD MEDICAL MAKING DECISION: The patient is a 27 years old female, presenting with acute pericolic, acute cystitis, acute dehydration. He was treated with 1 L normal saline for acute dehydration, morphine 2 IV for pain, Zofran 4 IV for nausea with good response The differential diagnoses considered include but are not limited to cholelithiasis, cholecystitis, cystitis, pancreatitis, hepatitis, gastritis, peptic ulcer disease, gastric ulcer, appendicitis, diverticulitis, cholangitis, choledocholithiasis, partial small bowel obstruction. Departure Diagnosis: Primary Impression: Biliary colic Additional Impression: UTI (urinary tract infection) Condition: Good Comments She was discharge with Bactrim DS and Motrin I discussed the findings with the patient. I advised the patient to follow-up with the primary physician in about 1-2 days for referal to surgery, sooner if needed and return if any concern. Disclaimer: Inadvertent spelling and grammatical errors are likely due to EHR/ dictation software use and do not reflect on the overall quality of patient care. Also, please note that the electronic time recorded on this note does not necessarily reflect the actual time of the patient encounter. SHAN SOTO MD Jul 10, 2017 04:00
[2017-07-10] MEDS ORDERED: ONDANSETRON 4 MG INJ IV STA (04:15)
[2017-07-10] MEDS ORDERED: SOD CHLORIDE 0.9% 1,000 ML IV STA (04:15)
[2017-07-10] MEDS ORDERED: morphine 2 MG INJ IV STA (04:15)
--- NOTE | 2017-07-10 04:52 | RADRPT ---
PROCEDURE: ULTRASOUND LIMITED ABDOMEN CLINICAL INDICATION: 27-year-old female with abdominal pain. TECHNIQUE: Multiple sonographic of the right upper quadrant of the abdomen were obtained. The imag es were reviewed on a PACS workstation. COMPARISON: None. FINDINGS: The pancreas is partially visualized and is otherwise without abnormal echogenicity. The liver displays normal echogenicity. The liver measures 17.9 cm in length. No evidence of intrah epatic biliary ductal dilatation is seen. The portal and hepatic veins are unremarkable. The gallbladder contains multiple shadowing stones. The gallbladder wall is mildly thickened measuri ng 3.8 mm. No pericholecystic fluid is seen. The common bile duct measures 3.6 mm and is not dilated . The right kidney displays normal echogenicity. The right kidney measures 10.8 cm in maximal length. No caliectasis or hydronephrosis is seen. No free fluid is seen. IMPRESSION: Cholelithiasis with mildly thickened gallbladder wall. .Chance Anderson MD, MD Date Time Electronically viewed and signed by .Chance Anderson MD, on 07/10/2017 04:52 .M/
[2017-07-10 05:03] LABS: URINE BLOOD (Dip) POC 3+ (NEGATIVE)
[2017-07-10 05:13] VITALS: TEMP 98.6
[2017-07-10 05:16] LABS: BASOPHILS % 0.4 % (0.0-2.0); EOSINOPHILS # 0.2 10^3/ul (0.0-0.5); EOSINOPHILS % 1.9 % (0.0-7.0); HEMATOCRIT 40.1 % (37.0-47.0); HEMOGLOBIN 13.4 g/dl (12.0-16.0); LYMPHOCYTES # 1.3 10^3/ul (0.8-2.9); LYMPHOCYTES % 12.2 % (15.0-51.0); MEAN CORPUSCULAR HEMOGLOBIN 28.7 pg (29.0-33.0); MEAN CORPUSCULAR HGB CONC 33.4 g/dl (32.0-37.0); MEAN CORPUSCULAR VOLUME 85.9 fl (82.0-101.0); MEAN PLATELET VOLUME 10.6 fl (7.4-10.4); MONOCYTE # 0.6 10^3/ul (0.3-0.9); MONOCYTES % 5.5 % (0.0-11.0); NEUTROPHIL # 8.6 10^3/ul (1.6-7.5); NEUTROPHILS % 79.6 % (39.0-77.0); PLATELET COUNT 287 10^3/UL (140-415); RED BLOOD COUNT 4.67 10^6/ul (4.20-5.40); RED CELL DISTRIBUTION WIDTH 13.2 % (11.5-14.5); WHITE BLOOD COUNT 10.8 10^3/ul (4.8-10.8)
[2017-07-10 05:37] LABS: ALBUMIN/GLOBULIN RATIO 1.08; BILIRUBIN,INDIRECT 0.3 mg/dl (0-1.1); BILIRUBIN,TOTAL 0.3 mg/dl (0.2-1.3); CALCIUM 9.8 mg/dl (8.4-10.2); CREATININE 0.76 mg/dl (0.44-1.00); POTASSIUM 4.1 mmol/L (3.5-5.1); TOTAL PROTEIN 7.7 g/dl (6.1-8.1)
[2017-07-10] MEDS ORDERED: SULF1TAB31 PO (05:52)
[2017-07-10] MEDS ORDERED: IBUP-1542 PO (05:53)
[2017-07-10 06:16] VITALS: BP 114/81; PULSE 81; RESP 16
== END 2017-07-10 06:19 | disposition home or self-care (01) ==
LOC: E/R 02:47
DX: K80.50 Calculus of bile duct without cholangitis or cholecystitis without obstruction (principal); N39.0 Urinary tract infection, site not specified; R40.2142 Coma scale, eyes open, spontaneous, at arrival to emergency department; R40.2252 Coma scale, best verbal response, oriented, at arrival to emergency department; R40.2362 Coma scale, best motor response, obeys commands, at arrival to emergency department
CPT/HCPCS: 36415; 76705; 80053; 81003; 83690; 85025; 96374; 96375; J2270; J2405; J7030; Z7502

== ENCOUNTER 2018-09-02 13:06 | Emergency (ER) | payer MEDICAID ==
[~2018-09-02] VITALS: Ht 144.8 cm; Wt 58.0 kg
[~2018-09-02 13:06] MED LIST changes: +ACET325T33 PO; +IBUP-1542 PO; +IBUP-1561 PO; +PRED20TA PO; +SLSL1C50 TOP; +SULF1TAB31 PO
[2018-09-02 13:15] VITALS: BP 132/76; PULSE 78; RESP 16; Ht 144.8 cm; Wt 58.0 kg
[2018-09-02] MEDS ORDERED: CEPH-443 PO (13:37)
[2018-09-02] MEDS ORDERED: SILV20CR12 TOP (13:38)
[2018-09-02] MEDS ORDERED: SILVER SULFADIAZINE 1% 25 GM CR TOP ONE (14:00)
--- NOTE | 2018-09-02 14:43 | ERD ---
ER Documentation Chief Complaint Chief Complaint left arm burn wound check HPI 28-year-old female patient turns to the ED for a wound check of a burn on her left arm. States that 2 days ago she accidentally got hot oil onto her left arm. Denies any fever, chills, nausea, vomiting, loss sensation, loss of range of motion. Reports that she was here 2 days ago and was given a prescription for Bactrim, states that however she is breast-feeding, wants to switch her antibiotic to one that is appropriate for breast-feeding. Denies any increased redness, swelling. ROS All systems reviewed and are negative except as per history of present illness. Medications Home Meds Active Scripts Silver Sulfadiazine* (Silvadene*) 1% - 20 Gm Cream.gm., 1 APPLIC TOP DAILY, #1 TUB Prov:MATTHEW NORRIS PA-C 09/02/18 Cephalexin* (Keflex*) 500 Mg Capsule, 500 MG PO QID for 7 Days, CAP Prov:MATTHEW NORRIS PA-C 09/02/18 Silver Sulfadiazine* (Thermazene*) 1%-50 gm Cream..g., 1 APPLIC TOP BID, #1 JAR Prov:BERNARDINO CASAS MD 08/31/18 Ibuprofen* (Motrin*) 400 Mg Tab, 400 MG PO Q8, #15 TAB Prov:BERNARDINO CASAS MD 08/31/18 Prednisone* (Prednisone*) 20 Mg Tab, 40 MG PO DAILY for 4 Days, TAB Prov:BERNARDINO CASAS MD 08/31/18 Acetaminophen* (Tylenol*) 325 Mg Tablet, 2 TAB PO Q8 PRN for PAIN AND OR ELEVA MILAGRO TEMP, #20 TAB Prov:BERNARDINO ACSAS MD 08/31/18 Sulfamethoxazole/Trimethoprim* (Bactrim Ds* Tablet) 1 Each Tablet, 1 TAB PO BID, #14 TAB Prov:BERNARDINO CASAS MD 08/31/18 Ibuprofen* (Motrin*) 600 Mg Tab, 600 MG PO Q6H PRN for PAIN, #20 TAB Prov:SHAN SOTO MD 07/10/17 Sulfamethoxazole/Trimethoprim* (Bactrim Ds* Tablet) 1 Each Tablet, 1 TAB PO BID for 10 Days, TAB Prov:SHAN SOTO MD 07/10/17 Reported Medications Pnv95/Ferrous Fumarate/FA ( Vitamin Tablet) 1 Each Tablet, 1 EACH PO DAILY, TAB 05/22/17 Allergies Allergies: Coded Allergies: Penicillins (Verified Allergy, Intermediate, RASH, 06/13/17) PMhx/Soc History of Surgery: Yes (Api) Anesthesia Reaction: No Hx Neurological Disorder: No Hx Respiratory Disorders: No Hx Psychiatric Problems: No Hx Miscellaneous Medical Probl: No Hx Alcohol Use: No Hx Substance Use: No Hx Tobacco Use: No Smoking Status: Never smoker FmHx Family History: No diabetes, No coronary disease Physical Exam Vitals Vital Signs Date Temp Pulse Resp B/P (MAP) Pulse Ox O2 O2 Flow FiO2 Time Delivery Rate 09/02/18 98.9 78 16 132/76 100 13:15 (94) Physical Exam Const: [id number], well-nourished. In no acute distress. Head: Atraumatic, normocephalic Eyes: Normal Conjunctiva without injection ENT: Normal external ear, nose and mouth. Neck: Full range of motion. No meningismus. Resp: Clear to auscultation bilaterally. No wheezing, rhonchi, rales, or crackles. No accessory muscle use. No retractions. Cardio: Regular rate and rhythm, no murmurs Skin: No petechiae or rashes Back: No midline tenderness. No CVA tenderness. Ext: No cyanosis, or edema. Cap refill less than 2 seconds. Distal pulses intact bilaterally. 4.5% well-healing second-degree burn with no blisters noted on the volar aspect of patient's left anterior arm. No circumferential burn. Cap r efill less than 2 seconds. Neur: Awake and alert. Normal gait and coordination. Muscle strength 5/5. Sensation intact bilaterally. Psych: Normal Mood and Affect Results 24 hrs Current Medications Medications Dose Sig/Amber Start Time Status Last (Trade) Ordered Route PRN Stop Time Admin Dose Reason Admin Silver 1 applic ONCE ONCE 09/02/18 DC 09/02/18 Sulfadiazine TOP 14:00 09/02/18 13:43 (Thermazene 14:00 1% 25 Gm) Procedures/MDM 28-year-old female patient with no significant past medical history presents to ED for a wound check. Patient is afebrile and nontoxic-appearing. Patient wound is healing appropriately. Wound has been clean. Silvadene was applied. A clean dressing was placed. She also reports that she is updated with her tetanus vaccine. Bactrim will be changed to Keflex as patient is dressed feeding. Neurovascularly intact pre-and post dressing change. Low suspicion for compartment syndrome, deep space infection, cellulitis, or other emergent conditions. Diagnosis: Encounter for wound recheck Discharge medications: Silvadene refilled, Keflex changed from Bactrim Follow up with primary care physician in 1-2 days. Burn center resources have been given to patient. Instructed patient to return to the ED sooner for any worsening symptoms. Patient's questions were answered. Patient is hemodynamically stable. Patient understood and agreed with discharge plan. Patient discharged stable. Disclaimer: Inadvertent spelling and grammatical errors are likely due to EHR/dictation software use and do not reflect on the overall quality of patient care. Also, please note that the electronic time recorded on this note does not necessarily reflect the actual time of the patient encounter. Departure Diagnosis: Primary Impression: Encounter for wound re-check Condition: Stable Patient Instructions: Wound Check, Burn F/U (No Infection) Referrals: [facility] YOU HAVE RECEIVED A MEDICAL SCREENING EXAM AND THE RESULTS INDICATE THAT YOU DO NOT HAVE A CONDITION THAT REQUIRES URGENT TREATMENT IN THE EMERGENCY DEPARTMENT. FURTHER EVALUATION AND TREATMENT OF YOUR CONDITION CAN WAIT UNTIL YOU ARE SEEN IN YOUR DOCTORS OFFICE WITHIN THE NEXT 1-2 DAYS. IT IS YOUR RESPONSIBILITY TO MA KE AN APPOINTMENT FOR FOLOW-UP CARE. IF YOU HAVE A PRIMARY DOCTOR --you should call your primary doctor and schedule an appointment IF YOU DO NOT HAVE A PRIMARY DOCTOR YOU CAN CALL OUR PHYSICIAN REFERRAL HOTLINE AT IF YOU CAN NOT AFFORD TO SEE A PHYSICIAN YOU CAN CHOSE FROM THE FOLLOWING [facility] [address] [facility] [address] [facility] [address] [facility] [address] [facility] [address] [facility]. [facility] [address] [facility]. [facility] YOU HAVE RECEIVED A MEDICAL SCREENING EXAM AND THE RESULTS INDICATE THAT YOU DO NOT HAVE A CONDITION THAT REQUIRES URGENT TREATMENT IN THE EMERGENCY DEPARTMENT. FURTHER EVALUATION AND TREATMENT OF YOUR CONDITION CAN WAIT UNTIL YOU ARE SEEN IN YOUR DOCTORS OFFICE WITHIN THE NEXT 1-2 DAYS. IT IS YOUR RESPONSIBILITY TO MAKE AN APPOINTMENT FOR FOLOW-UP CARE. IF YOU HAVE A PRIMARY DOCTOR --you should call your primary doctor and schedule and appointment IF YOU DO NOT HAVE A PRIMARY DOCTOR YOU CAN CALL OUR PHYSICIAN REFERRAL HOTLINE AT . IF YOU CAN NOT AFFORD TO SEE A PHYSICIAN YOU CAN CHOSE FROM THE FOLLOWING [facility] INSTITUTIONS: [facility] [address] [place] [address] [facility] [address] [place] [address] [facility] [address] [place] [address] [facility]/SPECIALTIES [facility] Additional Instructions: Llame al doctor MAANA y anupam mario BECKY PARA DENTRO DE 2-3 WILSON.Dgale a la secretaria que nosotros le instruimos hacer esta becky.Avise o llame si rdz condicin se empeora antes de la becky. Regresa aqui si peor o no mejor. Si el antibitico le da erupcin, regrese a la ED o ubaldo a doctora primario para obtener ms evaluacin y tratamiento MATTHEW NORRIS PA-C Sep 02, 2018 14:43
== END 2018-09-02 13:51 | disposition home or self-care (01) ==
LOC: FTE 13:06
DX: Z48.01 Encounter for change or removal of surgical wound dressing (principal)
CPT/HCPCS: Z7502; Z7610; 99281